=== PATIENT | female | born 2000 | race Caucasian/White ===

== ENCOUNTER 2025-01-05 17:12 | Outpatient (CLI) | payer OTHER, SELFPAY ==
--- NOTE | 2025-01-05 17:30 | CRLHL7_ITS ---
For Patients: As a result of the Cures Act, medical imaging exams and procedure reports are released immediately into your electronic medical record. You may view this report before your referring provider. If you have questions, please contact your health care provider. OB ULTRASOUND LESS THAN 14 WEEKS, 01/05/2025 CLINICAL HISTORY: Dating and viability. COMPARISON: Yes, outside facility [place]. TECHNIQUE: Real time bryson scale imaging of the fetus was performed. Transabdominal imaging performed. FINDINGS: Imaging: Transabdominal. LMP: Unknown. ERD by US: 07/28/2025. GA: 10 weeks 6 days. CRL: 4.0 cm, 10 weeks 6 days. RED 07/28/2025. FHR: 163 bpm. GEST SAC: 4.9 cm, appears WNL. YOLK SAC: 5.8 mm, appears WNL. RIGHT OV: 4.0 x 2.3 x 2.8 cm. LEFT OV: 2.2 x 3.1 x 2.0 cm. IMPRESSION: 1. Single living intrauterine measures 10 weeks 6 days and sonographic due date 07/28/2025. 2. Simple right ovarian cyst measures 2.5 cm. Gerardo Cunningham M.D. Diagnostic Radiologist [email or web address] Transcribed: 8:33 am DW/Dictated by: Gerardo Cunningham MD @ 01/06/2025 7:18:00 AM (Electronically Signed)
== END 2025-01-05 17:13 | disposition home or self-care (01) ==
LOC: US 17:12
PROVIDERS: Visit Provider Registered Nurse
DX: O34.81 Maternal care for other abnormalities of pelvic organs, first trimester (principal); N83.291 Other ovarian cyst, right side; Z3A.10 10 weeks gestation of pregnancy
CPT/HCPCS: 76801

== ENCOUNTER 2025-01-05 17:37 | Outpatient (CLI) | payer OTHER, SELFPAY ==
[2025-01-05 22:38] LABS: Chlamydia DNA Amplified* NOT DETECTED (No Detected); GC DNA Amplified* NOT DETECTED (No Detected)
== END 2025-01-05 17:38 | disposition home or self-care (01) ==
PROVIDERS: Visit Provider Registered Nurse
DX: Z34.91 Encounter for supervision of normal pregnancy, unspecified, first trimester (principal)
CPT/HCPCS: 82565; 82570; 83020; 83021; 84156; 84450; 84460; 84520; 85660; 86592; 86703; 86704; 86706; 86762; 86787; 86803; 86850; 86900; 86901; 87086; 87340; 87491; 87591

== ENCOUNTER 2025-01-21 14:39 | Outpatient (CLI) | payer OTHER, SELFPAY | END 2025-01-21 14:40 | disposition home or self-care (01) | LOC: NFLDREF 01-25 07:16 | PROVIDERS: Visit Provider Registered Nurse | DX: O16.1 Unspecified maternal hypertension, first trimester (principal) | CPT/HCPCS: 82570; 84156 ==

== ENCOUNTER 2025-01-27 10:09 | Outpatient (CLI) | payer MEDICAID, SELFPAY | END 2025-01-27 10:10 | disposition home or self-care (01) | PROVIDERS: Visit Provider Obstetrics & Gynecology | DX: Z34.91 Encounter for supervision of normal pregnancy, unspecified, first trimester (principal); Z91.89 Other specified personal risk factors, not elsewhere classified | CPT/HCPCS: 84450; 84460 ==

== ENCOUNTER 2025-03-10 09:00 | Outpatient (CLI) | payer MEDICAID, SELFPAY ==
--- NOTE | 2025-03-10 09:15 | CRLHL7_ITS ---
For Patients: As a result of the 21st Century Cures Act, medical imaging exams and procedure reports are released immediately into your electronic medical record. You may view this report before your referring provider. If you have questions, please contact your health care provider. OB ULTRASOUND SURVEY RED by US: 07/28/2025. GA: 20 w, 0 d. INDICATION: BFAS. TECHNIQUE: Real time bryson scale imaging of the fetus was performed. Evaluate anatomy. Transabdominal. position: Breech. Cervix: Visualized. Technique: Transabdominal. Length of closed cervix: 3.2 cm. Placenta/cord: Anterior. Technique: Transabdominal. Placenta tip to internal OS: 6.4 cm. Umbilical Cord: 3-vessel cord. Placenta insertion: Central. Amniotic Fluid: 4.3 cm SDP (greater than/equal to: 2- less than 8 cm). SURVEY: Observed Structures. Calvarium/Spine: Cerebellum: 1.9 cm, 19 w 6 d. Cisterna Magna: 3.8 mm. Nuchal Fold: 4.7 mm. Lateral Ventricle: 6.7 mm. CSP: Yes. Midline Falx: Yes. Choroid Plexus: Yes. Spine: Yes. Abdomen: Stomach: Yes. Abd Cord Insertion: Yes. Urinary Bladder: Yes. Kidneys: Yes. Diaphragm: Yes. Face: Nose/lips: Yes. Orbital view: Yes. Profile: Yes. Limbs: Upper Extremities: Yes. Lower Extremities: Yes. Hands: Yes. Feet: Yes. Vascular: 4-Chamber Heart: Yes. LVOT: Yes. RVOT: Yes. 3VV: Yes. 3VTV: Yes. BPD: 4.6 cm. 19 w, 5 d, 39 percent. HC: 17.7 cm. 20 w, 1 d, 51 percent. AC: 14.8 cm. 20 w, 1 d, 48 percent. FL: 3.3 cm. 20 w, 1 d, 50 percent. FL/AC ratio: 22.04 percent. HC/AC ratio: 1.19. heart rate: 145 bpm. age by this US: 20 w, 0 d. RED by this US: 07/28/2025. EFW: 335 g. Weight: 12 oz. Percentile by RED: 54 percent. IMPRESSION: 1. Concordance of clinical and sonographic dating. 2. Normal anatomic survey. Gerardo Cunningham M.D. Diagnostic Radiologist [email or web address] JR/Dictated by: Gerardo Cunningham MD @ 03/10/2025 10:34:00 AM (Electronically Signed)
== END 2025-03-10 09:01 | disposition home or self-care (01) ==
LOC: US 09:00
PROVIDERS: Visit Provider Obstetrics & Gynecology
DX: Z34.92 Encounter for supervision of normal pregnancy, unspecified, second trimester (principal); Z3A.20 20 weeks gestation of pregnancy
CPT/HCPCS: 76805